=== PATIENT | male | born 1960 | race Caucasian/White ===

== ENCOUNTER 2021-02-28 09:58 | Day surgery (SDC) | payer MEDICAID, SELFPAY ==
[~2021-02-28] VITALS: Ht 175.3 cm; Wt 96.2 kg
[2021-02-28] MEDS ORDERED: MIDAZOLAM HCL 5 MG/5 ML VIAL ONE (12:32)
[2021-02-28] MEDS ORDERED: DIPHENHYDRAMINE INJ 50 MG/ML VIAL IVP ONE (12:38)
[2021-02-28 14:03] VITALS: BP_SYST 115
== END 2021-02-28 13:30 | disposition home or self-care (01) ==
LOC: SDS 09:58 → SMU 10:02 → SDS 13:30
PROVIDERS: ATTEND Internal Medicine
DX: M51.16 Intervertebral disc disorders with radiculopathy, lumbar region (principal); F20.9 Schizophrenia, unspecified; G89.4 Chronic pain syndrome; I10 Essential (primary) hypertension; M50.90 Cervical disc disorder, unspecified, unspecified cervical region; Z79.899 Other long term (current) drug therapy
CPT/HCPCS: 64483; J1200; J2250; U0003; 76000

== ENCOUNTER 2023-03-21 19:36 | Emergency (ER) | payer MEDICAID ==
[~2023-03-21] VITALS: Ht 172.7 cm; Wt 99.3 kg
[2023-03-21 19:50] VITALS: BP_SYST 107; PULSE 115; RESP 23; TEMP 98.5; O2SAT 96
--- NOTE | 2023-03-21 19:50 | NUR ---
LEFT SIDED CHEST PAIN X2 DAYS 03/18 PAIN SCALE, SOB, ALCOHOLISM LAST DRINK 03/20/23 (1 PINT A DAY)
--- NOTE | 2023-03-21 19:57 | NUR ---
PATIENT TAKEN TO ED BED 6
--- NOTE | 2023-03-21 20:00 | NUR ---
REPORT GIVEN TO BABATUNDE ROLDAN
[2023-03-21] MEDS ORDERED: MAG-AL HYDROX/SIMETH 30 ML UDC PO ONE (20:15)
[2023-03-21] MEDS ORDERED: FAMOTIDINE 20 MG TABLET PO ONE (20:15)
[2023-03-21] MEDS ORDERED: DIAZEPAM 5 MG TABLET (VALIUM) PO ONE (20:15)
--- NOTE | 2023-03-21 20:21 | NUR ---
PT BIB SELF FROM HOME C/O LT UPPER ABD PAIN X2 DAYS. PT STATES PAIN IS THROBBING AND 7/10. PT STATES HX OF HTN, HYPERLIPIDEMIA AND ALCOHOLISM 1PINT PER DAY. PT IS AAO X4 RESTING COMFORTABLY IN BED VSS
[2023-03-21 21:25] LABS: BASOPHILS % (AUTO) 0.3 % (0.0-2.0); EOSINOPHILS % (AUTO) 0.1 % (0.0-4.0); HEMATOCRIT 45.9 % (36-54); HEMOGLOBIN 15.5 g/dL (14.0-18.0); LYMPHOCYTES # (AUTO) 1.2 K/uL (1.0-5.5); LYMPHOCYTES % (AUTO) 8.1 % (20.5-51.5); MEAN CORPUSCULAR HEMOGLOBIN 32 pg (27-31); MEAN CORPUSCULAR HGB CONC 34 % (32-36); MEAN CORPUSCULAR VOLUME 95 fL (79.0-98.0); MONOCYTES # (AUTO) 0.9 K/uL (0.0-1.0); NEUTROPHILS % (AUTO) 85.5 % (40.0-70.0); PLATELET COUNT (AUTO) 320 K/uL (130-430); RED BLOOD CELL COUNT(AUTO) 4.85 MIL/uL (4.2-6.2); RED CELL DISTRIBUTION WIDTH 13.6 % (9.0-15.0); WHITE BLOOD COUNT (AUTO) 15.2 K/uL (4.8-10.8)
[2023-03-21 21:40] LABS: ANION GAP 22 (5-15); CALCIUM 7.6 mg/dL (8.4-11.0); CHLORIDE 94 mmol/L (98-107); GFR AFRICAN AMERICAN 98 mL/min (>90); GLUCOSE 117 mg/dL (74-106); UREA NITROGEN, BLOOD 12 mg/dL (8-21)
[2023-03-21] MEDS ORDERED: KETOROLAC TROMETHAMINE 30 MG VIAL IM ONE (21:45)
[2023-03-21] MEDS ORDERED: KETOROLAC TROMETHAMINE 15 MG VIAL IVP ONE (21:45)
[2023-03-21 21:47] LABS: ALANINE AMINOTRANSFERASE 195 U/L (12-78); ALBUMIN 3.2 g/dL (3.4-4.8); LIPASE 321 U/L (73-393); TOTAL BILIRUBIN 1.6 mg/dL (0.0-1.0)
[2023-03-21 22:09] LABS: ASPARTATE AMINOTRANSFERASE 190 U/L (10-37)
[2023-03-21 22:27] LABS: PROTHROMBIN TIME 10.5 SECS (9.5-12.5)
[2023-03-21] MEDS ORDERED: THIAMINE HCL 100 MG in NS 50 ML IV ONE (22:30)
[2023-03-21] MEDS ORDERED: NACL 0.9% 1,000 ML IV ONE (22:30)
[2023-03-21] MEDS ORDERED: THIAMINE HCL 100 MG/ML VIAL ONE (22:37)
[2023-03-21 23:39] LABS: BILIRUBIN,URINE NEGATIVE (NEGATIVE); BLOOD, URINE 2+ (NEGATIVE); COLOR,URINE YELLOW (YELLOW); GLUCOSE,URINE NEGATIVE (NEGATIVE); KETONES,URINE 2+ (NEGATIVE); LEUKOCYTE ESTERASE ,URINE NEGATIVE (NEGATIVE); NITRITE, URINE NEGATIVE (NEGATIVE); PROTEIN URINE 1+ (NEGATIVE); UROBILINOGEN,URINE 0.2 (0.2-1.0)
[2023-03-21 23:58] LABS: CLARITY/URINE SLIGHTLY CLOUDY (CLEAR)
[2023-03-22 00:02] LABS: BACTERIA,URINE None Seen /HPF (None Seen); HYALINE CASTS, URINE 0-10 /LPF (None Seen); MUCUS,URINE 1+ /LPF (None Seen); WBC,URINE 0-3 /HPF (0-3)
--- NOTE | 2023-03-22 00:10 | NUR ---
PT STATES PAIN IS 05/[address] PRETTY
[2023-03-22] MEDS ORDERED: HYDROcodone/ACETAMIN 5-325 MG TAB (NORCO/ VICODIN) PO ONE ×2 (00:30→05:15)
[2023-03-22] MEDS ORDERED: BACL10TA PO (00:42)
[2023-03-22] MEDS ORDERED: LISI20TA30 PO (00:42)
[2023-03-22] MEDS ORDERED: NICO1PAT44 TD (00:42)
[2023-03-22] MEDS ORDERED: ATOR40TA68 PO (00:42)
[2023-03-22] MEDS ORDERED: HYDR-3917 PO (00:42)
[2023-03-22] MEDS ORDERED: D5NS 1,000 ML IV ONE (00:45)
--- NOTE | 2023-03-22 03:30 | NUR ---
PT RESTING COMFORTABLY IN BED VSS RAILS UP
--- NOTE | 2023-03-22 07:20 | NUR ---
Patient resting in bed, no signs of distress noted. No c/o pain at this time. VSS. Awaiting transfer, pickup time 1100.
[2023-03-22 09:25] VITALS: BP_SYST 146; PULSE 106; RESP 19; TEMP 97.9; O2SAT 93
--- NOTE | 2023-03-22 09:25 | NUR ---
Patient transfered to [facility], room 412B. Report given to JAMAR Enriquez @ [id number]. Transported by [facility]. Transfer packet provided to ambulance crew. Patient became nauseous just prior to transport was given Zofran. Patient in stable condition with no signs of acute distress noted. VSS.
[2023-03-22] MEDS ORDERED: ONDANSETRON HCL 4 MG/2 ML VIAL ONE (09:26)
[2023-03-22] MEDS ORDERED: ONDANSETRON HCL 4 MG/2 ML VIAL IVP ONE (09:30)
== END 2023-03-22 09:25 | disposition admitted as inpatient to this hospital (09) ==
LOC: SED 19:36
DX: F10.988 Alcohol use, unspecified with other alcohol-induced disorder (principal); R07.9 Chest pain, unspecified; E87.1 Hypo-osmolality and hyponatremia; D72.829 Elevated white blood cell count, unspecified; K70.9 Alcoholic liver disease, unspecified; R25.1 Tremor, unspecified; F41.9 Anxiety disorder, unspecified; F17.200 Nicotine dependence, unspecified, uncomplicated; I10 Essential (primary) hypertension; Z79.899 Other long term (current) drug therapy; Z20.822 Contact with and (suspected) exposure to COVID-19; Y90.6 Blood alcohol level of 120-199 mg/100 ml
CPT/HCPCS: 99291; 96374; 71045; 96361 ×2; 87426; 80053; 83690; 85025; 85610; 87040; 84484; 36415; 83605; 81000; 96372; 96375; G0481; J1885; J3411; J7030; J2405; J7042